=== PATIENT | female | born 1995 ===

== ENCOUNTER 2022-05-18 11:21 | Outpatient (CLI) | payer OTHER | END 2022-05-18 12:07 | disposition home or self-care (01) | LOC: PRENATAL 11:21 | PROVIDERS: ATTEND Obstetrics & Gynecology Maternal & Fetal Medicine | DX: O35.9XX0 Maternal care for (suspected) fetal abnormality and damage, unspecified, not applicable or unspecified (principal); O24.319 Unspecified pre-existing diabetes mellitus in pregnancy, unspecified trimester; O10.019 Pre-existing essential hypertension complicating pregnancy, unspecified trimester; O34.219 Maternal care for unspecified type scar from previous cesarean delivery; Z3A.31 31 weeks gestation of pregnancy; O36.8199 Decreased fetal movements, unspecified trimester, other fetus ==

== ENCOUNTER 2022-06-18 09:21 | Outpatient (CLI) | payer OTHER | END 2022-06-18 11:31 | disposition home or self-care (01) | LOC: PRENATAL 09:21 | PROVIDERS: ATTEND Obstetrics & Gynecology Maternal & Fetal Medicine | DX: O26.849 Uterine size-date discrepancy, unspecified trimester (principal); O34.219 Maternal care for unspecified type scar from previous cesarean delivery; O10.019 Pre-existing essential hypertension complicating pregnancy, unspecified trimester; Z3A.36 36 weeks gestation of pregnancy ==

== ENCOUNTER 2022-06-30 05:45 | Inpatient (IN) | payer OTHER ==
[~2022-06-30] VITALS: Ht 177.8 cm; Wt 3.6 kg
== END 2022-07-03 18:07 | disposition home or self-care (01) | DRG 785 ==
LOC: OB/GYN 05:45 → O/R 05:45 → OB/GYN 07:00
PROVIDERS: ADMIT Obstetrics & Gynecology; ATTEND Obstetrics & Gynecology
PROC: 4A1HXCZ Monitoring of Products of Conception, Cardiac Rate, External Approach (ICD-10-PCS; 2022-06-30)
PROC: 0UB70ZZ Excision of Bilateral Fallopian Tubes, Open Approach (ICD-10-PCS; 2022-06-30)
PROC: 10D00Z1 Extraction of Products of Conception, Low, Open Approach (ICD-10-PCS; principal; 2022-06-30 07:00)
DX: O36.63X0 Maternal care for excessive fetal growth, third trimester, not applicable or unspecified (principal); E11.9 Type 2 diabetes mellitus without complications; O16.4 Unspecified maternal hypertension, complicating childbirth; O34.211 Maternal care for low transverse scar from previous cesarean delivery; Z3A.38 38 weeks gestation of pregnancy; Z37.0 Single live birth; Z79.4 Long term (current) use of insulin; Z30.2 Encounter for sterilization; Z20.822 Contact with and (suspected) exposure to COVID-19